=== PATIENT | female | born 1985 | race American Indian/Alaskan Native ===

== ENCOUNTER 2020-07-04 14:50 | Emergency (ER) | payer BC ==
[~2020-07-04] VITALS: Ht 165.1 cm; Wt 72.6 kg
[2020-07-04] MEDS ORDERED: AMOCLA875 PO (19:35)
== END 2020-07-04 19:50 | disposition home or self-care (01) ==
LOC: ER 14:50
DX: J32.9 Chronic sinusitis, unspecified (principal); B96.89 Other specified bacterial agents as the cause of diseases classified elsewhere
CPT/HCPCS: 70481; 99284-25; A9270; Q9967

== ENCOUNTER → 2021-10-28 | Outpatient (CLI) | payer BC ==
[~2021-10-28] MED LIST: AMOCLA875 PO
[2021-10-30 07:11] LABS: CHLAMYDIA TRACHOMATIS, NAA Negative (Negative)
== END | disposition home or self-care (01) ==
LOC: LAB SHORT 14:30 → LAB 14:30
PROVIDERS: Student in an Organized Health Care Education/Training Program
DX: Z01.419 Encounter for gynecological examination (general) (routine) without abnormal findings (principal)
CPT/HCPCS: 87491; 87591; G0123

== ENCOUNTER → 2023-06-11 | Outpatient (CLI) | payer BC ==
[2023-06-11 12:15] LABS: BASOPHILS ABSOLUTE AUTO 0.03 K/mm3 (0.00-0.23); BASOPHILS PERCENT AUTO 1 % (0-2); EOSINOPHILS ABSOLUTE AUTO 0.01 K/mm3 (0.00-0.68); EOSINOPHILS PERCENT AUTO 0 % (0-6); Hematocrit 42.3 % (33.0-51.0); Hemoglobin 14.4 g/dL (11.5-16.0); IMMATURE GRAN ABSOLUTE AUTO 0.01 K/mm3 (0.00-0.10); IMMATURE GRAN PERCENT AUTO 0 % (0-1); LYMPHOCYTES ABSOLUTE AUTO 1.42 K/mm3 (0.84-5.20); LYMPHOCYTES PERCENT AUTO 24 % (21-46); MONOCYTES ABSOLUTE AUTO 0.42 K/mm3 (0.16-1.47); MONOCYTES PERCENT AUTO 7 % (4-13); Mean Corpuscular HGB 29.4 pg (26.0-34.0); Mean Corpuscular Volume 86 fL (80-100); Mean Platelet Volume 10.2 fL (9.1-12.4); NEUTROPHILS PERCENT AUTO 68 % (41-73); Platelet Count 320 K/mm3 (150-400); RDW Coefficient Variation 11.9 % (11.7-14.2); RDW Standard Deviation 37.6 fL (35.1-46.3); White Blood Cell Count 5.89 K/mm3 (4.00-11.30)
[2023-06-11 12:26] LABS: Albumin, Blood 4.1 g/dL (3.4-5.0); Bilirubin, Total 0.4 mg/dL (0.1-1.0); Bun/Creatinine Ratio 8.6 (12.0-20.0); Calcium, Blood 9.5 mg/dL (8.5-10.1); Creatinine, Blood 0.81 mg/dL (0.40-1.00); Globulin, Blood 4.3 g/dL (2.2-4.0); Potassium, Blood 3.4 mmol/L (3.5-5.5); Total Protein, Blood 8.4 g/dL (6.4-8.2)
== END ==
LOC: LAB SHORT 12:06
PROVIDERS: Chiropractor
DX: R11.2 Nausea with vomiting, unspecified (principal); Z33.1 Pregnant state, incidental
CPT/HCPCS: 80053; 84702; 85025

== ENCOUNTER → 2023-10-09 | Outpatient (CLI) | payer BC ==
[2023-10-09 18:26] LABS: Candida Group, PCR NOT DETECTED (NOT DETECT); Candida glabrata-krusei, PCR NOT DETECTED (NOT DETECT)
[2023-10-09 19:27] LABS: Bacterial Vaginosis PCR Positive (NEGATIVE)
[2023-10-14 19:01] LABS: APTIMA MEDIA TYPE MultiTest Swab; C. TRACHOMATIS BY TMA Negative (Negative); N. GONORRHOEAE BY TMA Negative (Negative); SPECIMEN SOURCE Vaginal; T. VAGINALIS BY TMA Negative (Negative)
== END | disposition home or self-care (01) ==
LOC: LAB SHORT 16:45 → LAB 16:45
PROVIDERS: Registered Nurse Community Health
DX: N89.8 Other specified noninflammatory disorders of vagina (principal)
CPT/HCPCS: 87481; 87661; 87801

== ENCOUNTER 2024-01-22 12:58 | Inpatient (IN) | payer BC ==
[~2024-01-22] VITALS: Ht 165.1 cm; Wt 90.9 kg
[2024-01-22 13:07] VITALS: BP 117/83
[2024-01-22] MEDS ORDERED: VALA500 PO (14:46)
[2024-01-22] MEDS ORDERED: ONE-A-DAY PREN1 EAC1 PO (14:47)
[2024-01-22] MEDS ORDERED: Lactated Ringer's 1,000 ML IV SCH ×3 (15:00)
[2024-01-22] MEDS ORDERED: Misoprostol 200 MCG Tab PR PRN (15:00)
[2024-01-22] MEDS ORDERED: Oxytocin 10 Unit / ML Vial IM PRN (15:00)
[2024-01-22] MEDS ORDERED: Misoprostol 200 MCG Tab BC PRN (15:00)
[2024-01-22] MEDS ORDERED: Carboprost Tromethamine 250 MCG/ML 1ML Amp IM PRN (15:00)
[2024-01-22] MEDS ORDERED: FentaNYL 2mcg/ml-Bup 0.1% Epd 250 ML EPI PRN (15:00)
[2024-01-22] MEDS ORDERED: ePHEDrine Sulfate 50 MG/ML 1ML Injection XX PRN (15:00)
[2024-01-22] MEDS ORDERED: Methylergonovine Maleate 0.2MG / ML 1ML Amp IM PRN (15:00)
[2024-01-22] MEDS ORDERED: Calcium Carbonate 500 MG Tab Chew PO PRN (15:05)
[2024-01-22] MEDS ORDERED: Acetaminophen 500 MG Tab PO PRN (15:05)
[2024-01-22] MEDS ORDERED: Ondansetron HCl 2 MG / ML 2ML Vial IV PRN (15:05)
[2024-01-22] MEDS ORDERED: OXYTOCIN/RINGER'S LACTATE 500 ML IV SCH (15:05)
[2024-01-22] MEDS ORDERED: Tranexamic Acid 100 ML IV SCH (15:10)
[2024-01-22 15:26] LABS: BASOPHILS ABSOLUTE AUTO 0.04 K/mm3 (0.00-0.23); BASOPHILS PERCENT AUTO 0 % (0-2); EOSINOPHILS PERCENT AUTO 1 % (0-6); Hematocrit 32.1 % (33.0-51.0); Hemoglobin 10.9 g/dL (11.5-16.0); IMMATURE GRAN ABSOLUTE AUTO 0.08 K/mm3 (0.00-0.10); IMMATURE GRAN PERCENT AUTO 1 % (0-1); LYMPHOCYTES ABSOLUTE AUTO 2.22 K/mm3 (0.84-5.20); LYMPHOCYTES PERCENT AUTO 17 % (21-46); MONOCYTES ABSOLUTE AUTO 0.72 K/mm3 (0.16-1.47); MONOCYTES PERCENT AUTO 5 % (4-13); Mean Corpuscular HGB 29.1 pg (26.0-34.0); Mean Corpuscular Volume 86 fL (80-100); Mean Platelet Volume 10.9 fL (9.1-12.4); NEUTROPHILS ABSOLUTE AUTO 10.33 K/mm3 (1.96-9.15); NEUTROPHILS PERCENT AUTO 77 % (41-73); Platelet Count 341 K/mm3 (150-400); RDW Coefficient Variation 12.3 % (11.7-14.2); Red Blood Cell Count 3.75 M/mm3 (3.80-5.20); White Blood Cell Count 13.49 K/mm3 (4.00-11.30)
[2024-01-22 15:57] VITALS: BP 134/76
[2024-01-22 17:38] VITALS: BP 134/85
[2024-01-22 18:44] VITALS: BP 136/88
[2024-01-22 19:16] VITALS: BP 120/80
[2024-01-22 21:56] VITALS: BP 132/89
[2024-01-23] VITALS (17 sets, daily range): BP systolic 122–141; BP diastolic 75–102
[2024-01-23] MEDS ORDERED: Lactated Ringer's 1,000 ML IV SCH ×2 (03:20→16:20)
[2024-01-23] MEDS ORDERED: OXYTOCIN/RINGER'S LACTATE 500 ML IV SCH ×2 (03:20→16:25)
[2024-01-23] MEDS ORDERED: FentaNYL Citrate 50 MCG/ML 2 ML Injection ONE (13:59)
[2024-01-23] MEDS ORDERED: FentaNYL Citrate 50 MCG/ML 2 ML Injection IV PRN (14:30)
[2024-01-23] MEDS ORDERED: Ketorolac Tromethamine 30mg Vial IV PRN (16:20)
[2024-01-23] MEDS ORDERED: Diphth,Pertuss(Acell),Tet Vac 0.5 ML VIAL IM SCH (16:20)
[2024-01-23] MEDS ORDERED: Benzocaine Topical Anesthetic Spray 60GM TOP PRN (16:20)
[2024-01-23] MEDS ORDERED: Docusate Sodium 100 MG Cap PO PRN (16:20)
[2024-01-23] MEDS ORDERED: FLU VACC TS2024-25(6MOS UP)/PF 45 MCG/0.5 ML SYRINGE IM SCH (16:20)
[2024-01-23] MEDS ORDERED: Acetaminophen 325 MG TABLET PO PRN (16:20)
[2024-01-23] MEDS ORDERED: OxyCODONE 5 mg/Acetamin 325 mg TABLET PO PRN (16:25)
[2024-01-23] MEDS ORDERED: Rho(D) Immune Globulin 300 MCG / SYR IM SCH (16:25)
[2024-01-23] MEDS ORDERED: Misoprostol 200 MCG Tab PR PRN (16:25)
[2024-01-23] MEDS ORDERED: Witch Hazel/Glycerin PADS TOP PRN (16:25)
[2024-01-23] MEDS ORDERED: Oxytocin 10 Unit / ML Vial IM ONE (16:25)
[2024-01-23] MEDS ORDERED: Measles/Mumps/Rubella Vaccine 0.5 ML Vial SC SCH (16:30)
[2024-01-23] MEDS ORDERED: Methylergonovine Maleate 0.2MG / ML 1ML Amp IM PRN (16:30)
[2024-01-24 00:01] VITALS: BP 127/76
--- NOTE | 2024-01-24 01:55 | NUR ---
THIS RN ASSUMED CARE OF PT FROM ZULLY Verma RN. PT AND PTS CURRENTLY SLEEPING. EVEN AND UNLABORED RESPIRATIONS NOTED FOR BOTH THE PT AND HER NB.
[2024-01-24 04:38] VITALS: BP 129/82
[2024-01-24 08:24] VITALS: BP 123/72
[2024-01-24] MEDS ORDERED: Prenatal Vit/FE Fumarate/FA 1 Tab PO SCH (09:00)
[2024-01-24 09:46] LABS: Hematocrit 25.5 % (33.0-51.0); Hemoglobin 8.4 g/dL (11.5-16.0); Mean Corpuscular HGB 28.6 pg (26.0-34.0); Mean Corpuscular HGB Conc 32.9 g/dL (31.5-36.5); Mean Corpuscular Volume 87 fL (80-100); Mean Platelet Volume 10.9 fL (9.1-12.4); Platelet Count 282 K/mm3 (150-400); RDW Coefficient Variation 12.2 % (11.7-14.2); RDW Standard Deviation 38.3 fL (35.1-46.3); Red Blood Cell Count 2.94 M/mm3 (3.80-5.20); White Blood Cell Count 17.69 K/mm3 (4.00-11.30)
--- NOTE | 2024-01-24 10:31 | NUR ---
talked to pt about going to boarder status, explained boarder status and would get her there ater 1600, that we would need to weigh her pads until then due to her hemorrhage after delivery with her QBL
[2024-01-24] MEDS ORDERED: IBUP800 PO (10:51)
[2024-01-24 13:04] VITALS: BP 123/71
--- NOTE | 2024-01-24 13:17 | NUR ---
ASSUMED CARE OF PATIENT FROM MIGUEL A BEAR AT 1140AM
[2024-01-24 18:27] VITALS: BP 132/88
[2024-01-24] MEDS ORDERED: Ibuprofen 400 MG Tab PO PRN (18:30)
--- NOTE | 2024-01-24 18:47 | NUR ---
DISCHARGE INSTRUCTIONS DISCUSSED. MOM VERBALIZED UNDERSTANDING. MOM DISCHARGING TO BOARDER STATUS.
== END 2024-01-24 18:40 | disposition home or self-care (01) | DRG 806 ==
LOC: BC 12:58 → OBS 12:58 → BC 13:01 → OBS 14:35 → BC 14:36
PROVIDERS: ADMIT Registered Nurse Community Health
PROC: 10E0XZZ Delivery of Products of Conception, External Approach (ICD-10-PCS; principal; 2024-01-23)
PROC: 0HQ9XZZ Repair Perineum Skin, External Approach (ICD-10-PCS; 2024-01-23)
DX: O26.893 Other specified pregnancy related conditions, third trimester (principal); O98.52 Other viral diseases complicating childbirth; Z37.0 Single live birth; Z67.41 Type O blood, Rh negative; Z3A.38 38 weeks gestation of pregnancy; B00.9 Herpesviral infection, unspecified; O70.0 First degree perineal laceration during delivery
CPT/HCPCS: 36415; 81003; 85025; 85027; 86850; 86900; 86901; A9270; J1885; J2210; J2590; J3010; J7120

== ENCOUNTER 2024-06-11 23:06 | Emergency (ER) | payer BC ==
[~2024-06-11] VITALS: Ht 167.6 cm; Wt 77.1 kg
[~2024-06-11 23:06] MED LIST changes: +IBUP800 PO; +ONE-A-DAY PREN1 EAC1 PO; +VALA500 PO
[2024-06-12] MEDS ORDERED: Acetaminophen 500 MG Tab PO ONE (00:10)
[2024-06-12] MEDS ORDERED: NS 1,000 ML IV SCH (00:10)
[2024-06-12] MEDS ORDERED: NS 1,000 ML IV ONE (00:12)
[2024-06-12 01:04] LABS: Influenza A, PCR NEGATIVE (NEGATIVE); Influenza B, PCR NEGATIVE (NEGATIVE); SARS-Cov-2 (COVID-19) PCR, MMC NEGATIVE (NEGATIVE)
[2024-06-12 01:07] LABS: Resp Syncytial Virus, PCR POSITIVE (NEGATIVE)
[2024-06-12 01:25] VITALS: BP 132/76
== END 2024-06-12 01:33 | disposition home or self-care (01) ==
LOC: ER 23:06
PROVIDERS: Student in an Organized Health Care Education/Training Program
DX: J06.9 Acute upper respiratory infection, unspecified (principal); B97.4 Respiratory syncytial virus as the cause of diseases classified elsewhere; Z79.899 Other long term (current) drug therapy
CPT/HCPCS: 0241U; J7030